=== PATIENT | female | born 1970 | race Two or more races ===

== ENCOUNTER → 2023-05-07 10:36 | Outpatient (BNVA) | payer OTHER, SELFPAY | PROVIDERS: Visit Provider Physician Assistant Medical | DX: S63.501A Unspecified sprain of right wrist, initial encounter (principal); X58.XXXA Exposure to other specified factors, initial encounter; G56.01 Carpal tunnel syndrome, right upper limb | CPT/HCPCS: 29125; 99203 ==

== ENCOUNTER → 2023-05-21 13:33 | Outpatient (BNVA) | payer OTHER, SELFPAY | PROVIDERS: Visit Provider Physician Assistant Medical | DX: S63.501D Unspecified sprain of right wrist, subsequent encounter (principal); X58.XXXD Exposure to other specified factors, subsequent encounter; G56.01 Carpal tunnel syndrome, right upper limb | CPT/HCPCS: 99213 ==

== ENCOUNTER → 2023-06-05 13:15 | Outpatient (BNVA) | payer OTHER, SELFPAY | PROVIDERS: Visit Provider Physician Assistant Medical | DX: S63.501D Unspecified sprain of right wrist, subsequent encounter (principal); X58.XXXD Exposure to other specified factors, subsequent encounter; G56.01 Carpal tunnel syndrome, right upper limb | CPT/HCPCS: 99213 ==

== ENCOUNTER 2023-06-19 13:00 | Outpatient (RCR) | payer OTHER, SELFPAY ==
--- NOTE | 2023-05-10 10:57 | MHC.OT.EP ---
[address] [phone] Occupational Therapy Plan of Care Patient Name: Sharri Valdez Date of Evaluation: 05/10/23 Diagnosis: R wrist sprain, CTS Pain Location: 4-8 sharp. 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 She has tried to self manage by avoiding right hand use with static and repetitive gripping as able at home and work She is now taking Gabapentin at night , has been placed on light duty and is wearing a pre nano wrist support since her appointment with [facility] 3 days ago . Today she presents with a complaint of constant pain and numbness ,worsening at night. Steeping Press Tender and pinch strengths are low due to pain. 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 Thank you once again for your referral.
--- NOTE | 2023-06-19 13:28 | MHC.OT.DC ---
[address] [phone] F: [phone] Occupational Therapy Discharge Note Patient Name: Sharri Rangel Matias Valdez Provider: Floresita Daniels Diagnosis: R wrist sprain, CTS Date of Surgery: Date of Evaluation: 05/10/23 Date of Discharge: 06/19/23 Treatments to Date: 10 Cancellations to Date: No Shows to Date: Discharge Status: Achieved Goals Improved Function Independent with HEP Discharge Summary: Goals MET Improved right wrist and hand pain to occasional 1 or 2 at base of right thumb/radial wrist. 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 Pt denies hand paresthesia and continues to wear her night CTS splint. She reports she is anxious to return to regular duty after her follow up appointment with [facility] on Sunday. Electronically Signed By: Dior Campos OT CHT CLT Reviewed/agree with student documentation: Therapist: Please Sign and return to therapist, thank you for your referral.
== END 2023-06-19 13:29 | disposition home or self-care (01) ==
LOC: HO.OT 13:00
PROVIDERS: Visit Provider Physician Assistant Medical
DX: G56.01 Carpal tunnel syndrome, right upper limb (principal); S63.511D Sprain of carpal joint of right wrist, subsequent encounter
CPT/HCPCS: 29125; 97110; 97140; 97166; 97535; 97760

== ENCOUNTER → 2023-06-25 13:08 | Outpatient (BNVA) | payer OTHER, SELFPAY | PROVIDERS: Visit Provider Physician Assistant Medical | DX: G56.01 Carpal tunnel syndrome, right upper limb (principal) | CPT/HCPCS: 99213 ==